=== PATIENT | female | born 2000 | race Caucasian/White ===

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

== ENCOUNTER 2022-05-21 09:46 | Emergency (ER) | payer OTHER ==
[~2022-05-21] VITALS: Ht 172.7 cm; Wt 82.3 kg
[2022-05-21 10:05] VITALS: BP 113/70
== END 2022-05-21 11:02 | disposition home or self-care (01) ==
LOC: ED 09:46
DX: J06.9 Acute upper respiratory infection, unspecified (principal); Z20.822 Contact with and (suspected) exposure to COVID-19